=== PATIENT | male | born 1975 | race Caucasian/White ===

== ENCOUNTER 2022-06-16 03:53 | Emergency (ER) | payer BC, SELFPAY ==
[2022-06-16 03:58] VITALS: BP 154/110; PULSE 120; RESP 20; TEMP 36.6; O2SAT 99
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
[2022-06-16 04:29] LABS: Basophils Percent Auto 0.5 % (0.2-1.2); Eosinophils Percent Auto 0.8 % (0-4.4); Hemoglobin 16.4 g/dL (14.0-18.0); Immature Granulocyte Absolute 0.01 K/mm3 (0.00-0.031); Immature Granulocyte Percent A 0.3 % (0-0.5); Lymphocytes Absolute Auto 1.19 K/mm3 (0.9-3.2); Lymphocytes Percent Auto 29.9 % (18.3-44.2); Mean Corpuscular HGB Conc 34.9 g/dl (32-36); Mean Corpuscular Hemoglobin 31.2 pg (26-34); Mean Corpuscular Volume 89.5 fl (80-100); Mean Platelet Volume 10.6 fl (7.4-10.4); Monocytes Absolute Auto 0.3 K/mm3 (0.1-0.6); Monocytes Percent Auto 7.5 % (2.6-8.5); Neutrophils Absolute Auto 2.4 K/mm3 (1.3-6.7); Platelet Count Result 161 k/mm3 (150-375); Red Blood Count 5.25 M/mm3 (4.6-6.20); Red Cell Distribution Width 12.2 % (11.5-14.5)
[2022-06-16 04:37] LABS: Appearance Urine Cloudy (Clear); Bacteria Urine None Seen /hpf; Bilirubin Urine Negative (Negative); Blood Urine Negative (Negative); Color Urine Yellow (Yellow); Glucose Urine UA Negative (Negative); Ketones Urine Trace mg/dL (Negative); Leukocyte Esterase Ur Negative LEU/UL (Negative); Nitrate Urine Negative (Negative); Non Pathogenic Casts >20; Protein Urine 1+ mg/dL (Negative); RBC Urine 0-2 /hpf (0-2); Specific Grav Ur 1.013 (1.001-1.035); Squamous Epithelial Cell Urine None seen /hpf (Few); Urobilinogen Urine 0.2 mg/dL (<2.0); WBC Urine 0-5 /hpf
[2022-06-16 04:38] LABS: Add Urine Microscopic? YES
[2022-06-16 04:40] LABS: Ethanol 266 mg/dL (<10)
[2022-06-16 04:51] LABS: Amphetamine Screen Urine Negative (Negative); Barbiturate Screen Urine Negative (Negative); Benzodiazepines Screen Urine Negative (Negative); Cannabinoid Screen Urine Negative (Negative); Cocaine Screen Urine Negative (Negative); Methadone Screen Urine Negative (Negative); Opiate Screen Urine Negative (Negative); Phencyclidine Screen Urine Negative (Negative)
[2022-06-16 04:59] LABS: Alanine Aminotransferase 170 U/L (6-50); Albumin Level 5.5 g/dL (3.5-5.1); Alkaline Phosphatase 101 U/L (38-126); Anion Gap 14 mmol/L (8-16); Aspartate Amino Transferase 89 U/L (17-59); Bilirubin,Total 0.4 mg/dL (0.2-1.3); Blood Urea Nitrogen 12 mg/dL (9-20); Calcium 9.4 mg/dL (8.4-10.2); Carbon Dioxide 21 mmol/L (22-30); Chloride 103 mmol/L (98-107); Estimated CRCL calculation 94 ml/min; Estimated Glomerular Filt Rate > 60; Glucose 104 mg/dL (65-110); Potassium 4.3 mmol/L (3.4-5.0); Sodium 138 mmol/L (137-145)
[2022-06-16] MEDS: NICOTINE (*PBKC) 21 MG PATCH 1 PATCH TRANSDERM (05:30)
[2022-06-16 06:26] LABS: Hyaline Casts Urine Present /lpf
[2022-06-16 06:40] LABS: Influenza A QL RT-PCR Negative (Negative); Influenza B QL RT-PCR Negative (Negative); SARS-CoV-2 RNA PCR Negative
[2022-06-16 07:44] VITALS: BP 144/97; PULSE 124; RESP 18; O2SAT 100
[2022-06-16 10:21] LABS: Ethanol 126 mg/dL (<10)
[2022-06-16 12:48] LABS: Ethanol 45 mg/dL (<10)
--- NOTE | 2022-06-16 14:10 | PC.NURSE ---
Crisis in to evaluate.
--- NOTE | 2022-06-16 15:27 | PC.NURSE ---
Received call from Bebe at the [facility]. They cannot take pt due to no insurance.
--- NOTE | 2022-06-16 18:54 | PC.NURSE ---
Per Jose at [facility] they are at capacity for the night and will not have beds.
[2022-06-16 20:05] VITALS: BP 152/90; PULSE 101; RESP 18; TEMP 36.9; O2SAT 98
--- NOTE | 2022-06-17 09:39 | PC.NURSE ---
safety tray ordered
[2022-06-17 09:46] VITALS: BP 144/95; PULSE 100; RESP 18; TEMP 36.6; O2SAT 100
--- NOTE | 2022-06-17 11:05 | PC.NURSE ---
Angy from [facility] called for update on placement. Pt has not been placed and involuntary time/expiration reviewed. Angy to additional facilities for placement
--- NOTE | 2022-06-17 12:20 | PC.NURSE ---
Angy [facility] called, chart sent to [facility] via fax for consideration of placement.
[2022-06-17] MEDS: NICOTINE (*PBKC) 21 MG PATCH 1 PATCH TRANSDERM (13:05)
[2022-06-17 15:01] VITALS: BP 124/89; PULSE 97; RESP 16; TEMP 36.6; O2SAT 100
--- NOTE | 2022-06-17 16:23 | PC.NURSE ---
[facility] requesting pt have involuntary petition reevaluated, Angy at [facility] notified and dispatched for evaluation.
--- NOTE | 2022-06-17 17:07 | PC.NURSE ---
Crisis here for reevaluation.
--- NOTE | 2022-06-17 18:09 | PC.NURSE ---
Report given to Flower at [facility]
== END 2022-06-16 18:10 ==
PROVIDERS: Emergency Medicine; Emergency Provider Emergency Medicine
DX: F32.A Depression, unspecified (principal); R45.851 Suicidal ideations; Z20.822 Contact with and (suspected) exposure to COVID-19; I10 Essential (primary) hypertension
CPT/HCPCS: 36415; 80053; 80307; 81001; 84443; 85025; 87636; 99285; A9270